=== PATIENT | male | born 1980 | race Caucasian/White ===

== ENCOUNTER 2017-06-11 02:40 | Inpatient (IN) | payer MEDICAID ==
--- NOTE | 2017-06-11 03:17 | C.PDOC ---
History Of Present Illness <Iraida Caceres - Last Filed: 06/11/17 06:43> <Kiara Tovar N - Last Filed: 06/11/17 07:32> 37 y/o male with h/o of heroine abuse presents to ER requesting detox. Pt c/o of feeling depressed when using heroine. Last use [employer]. Pt c/o of mild toothache and is requesting pain meds. denies trauma, chest pain, SOB, Suicidal/ homicidal ideations or hallucinations (Iraida Caceres) History Per: Patient History/Exam Limitations: no limitations Suicide/Self Injury Attempted (Context): None Modifying Factor(s): Other (heroine) Associated Symptoms: Depression <Iraida Caceres - Last Filed: 06/11/17 06:43> <Kiara Tovar N - Last Filed: 06/11/17 07:32> Time Seen by Provider: 06/11/17 03:08 Chief Complaint (Nursing): Psychiatric Evaluation Past Medical History - Medical History PMH: No Chronic Diseases Family History: States: Unknown Family Hx - Social History Hx Alcohol Use: No Hx Substance Use: Yes <Iraida Caceres - Last Filed: 06/11/17 06:43> Vital Signs: Last Vital Signs Temp 98 F 06/11/17 02:59 Pulse 95 H 06/11/17 02:59 Resp 20 06/11/17 02:59 BP 143/87 06/11/17 02:59 Pulse Ox 98 06/11/17 06:45 Review Of Systems Constitutional: Negative for: Fever ENT: Positive for: Mouth Pain (dental) Cardiovascular: Negative for: Chest Pain, Palpitations Respiratory: Negative for: Shortness of Breath Gastrointestinal: Negative for: Nausea, Vomiting Neurological: Negative for: Weakness, Numbness Psych: Positive for: Depression <Iraida Caceres - Last Filed: 06/11/17 06:43> Constitutional: Negative for: Chills Eyes: Negative for: Pain, Vision Change ENT: Negative for: Ear Pain, Ear Discharge Respiratory: Negative for: Cough, SOB with Excertion, Pleuritic Pain Gastrointestinal: Negative for: Constipation Genitourinary: Negative for: Dysuria, Frequency, Hematuria Musculoskeletal: Negative for: Neck Pain, Shoulder Pain, Back Pain, Hand Pain Skin: Negative for: Rash, Lesions Psych: Negative for: Anxiety <Kiara Tovar - Last Filed: 06/11/17 07:32> Physical Exam - Physical Exam Appears: Well, Non-toxic Skin: Normal Color Head: Atraumatic Eye(s): bilateral: Normal Inspection, PERRL Teeth: Caries (lower molars b/l, no fluuctuant mass) Throat: Normal, No Erythema Neck: Normal, Supple Chest: Symmetrical, No Tenderness Cardiovascular: Rhythm Regular, No Murmur Respiratory: Normal Breath Sounds, No Rhonchi Gastrointestinal/Abdominal: Normal Exam, Soft, No Tenderness Extremity: Normal ROM, No Swelling Extremity: Bilateral: Atraumatic Neurological/Psych: Oriented x3, Normal Speech, Normal Cognition Gait: Steady <Iraida Caceres - Last Filed: 06/11/17 06:43> ED Course And Treatment - Laboratory Results Result Diagrams: 06/11/17 03:36 06/11/17 03:36 O2 Sat by Pulse Oximetry: 98 Pulse Ox Interpretation: Normal Progress Note: Pt AAOx3 in NAD, labs are sent for detox. Patient is pending evaluation for detox. Pt was evaluated by crisis counselor Uma and will be admitted to psych undr Dr Hicks. Pt remained stable in ED. Pt remained stable in ED, labs reviewed and pt is medically cleared for psych admission <Iraida Caceres - Last Filed: 06/11/17 06:43> - Laboratory Results Result Diagrams: 06/11/17 03:36 06/11/17 03:36 <Kiara Tovar N - Last Filed: 06/11/17 07:32> Disposition - Disposition Disposition Time: 06:44 <Iraida Caceres - Last Filed: 06/11/17 06:43> <Kiara Tovar N - Last Filed: 06/11/17 07:32> - Disposition Disposition: HOSPITALIZED Condition: STABLE - Clinical Impression Clinical Impression: Major depressive disorder, single episode, unspecified, Opiate abuse, continuous
[2017-06-11 03:41] LABS: BASO % 0.3 % (0.0-2.0); EOS # 0.3 K/uL (0.0-0.7); EOS % 2.4 % (0.0-4.0); LYMPH # 2.7 K/uL (1.0-4.3); LYMPH % 25.7 % (20.0-40.0); MEAN CELL VOLUME 82.6 fL (80.0-94.0); MEAN CORPUSCULAR HEMOGLOBIN 28.2 pg (27.0-31.0); MEAN CORPUSCULAR HGB CONC 34.2 g/dL (33.0-37.0); MEAN PLATELET VOLUME 8.8 fL (7.2-11.7); MONO # 0.9 K/uL (0.0-0.8); MONO % 8.6 % (0.0-10.0); NEUT # 6.5 K/uL (1.8-7.0); NRBC % 0.1 % (0.0-2.0); RBC 4.97 Mil/uL (4.40-5.90); RED CELL DISTRIBUTION WIDTH 14.8 % (11.5-14.5); WHITE BLOOD COUNT 10.4 K/uL (4.8-10.8)
[2017-06-11 03:54] LABS: ALB/GLOB RATIO 0.9 (1.0-2.1); ALT/SGPT 127 U/L (21-72); AST/SGOT 85 U/L (17-59); BLOOD UREA NITROGEN 20 mg/dL (9-20); CALCIUM 8.9 mg/dl (8.6-10.4); GFR AFRICAN-AMERICAN > 60; GFR NON-AFRICAN AMERICAN > 60
[2017-06-11 05:29] LABS: URINE BILIRUBIN NEGATIVE (NEGATIVE); URINE CLARITY Clear (Clear); URINE COLOR Yellow (YELLOW); URINE GLUCOSE (UA) NORMAL (Normal); URINE LEUKOCYTE ESTERASE NEG Leu/uL (Negative); URINE PROTEIN NEGATIVE (NEGATIVE); URINE UROBILINOGEN NORMAL mg/dL (0.2-1.0)
[2017-06-11 05:34] LABS: URINE BLOOD NEGATIVE (NEGATIVE)
[2017-06-11 05:48] LABS: BARBITURATES, UR NEGATIVE (NEGATIVE); BENZODIAZEPINES, UR NEGATIVE (NEGATIVE); PHENCYCLIDINE, UR NEGATIVE (NEGATIVE)
[2017-06-11 06:06] LABS: OPIATES, UR POSITIVE (NEGATIVE)
--- NOTE | 2017-06-11 08:16 | PCM.BM ---
<Taryn Avalos - Last Filed: 06/11/17 08:15> Treatment Plan Problems - Problems identified on initial assessmt Depression Date Initiated: 06/11/17 Time Initiated: 08:15 Assessment reference: NA Status: Active Substance Abuse Date Initiated: 06/11/17 Time Initiated: 08:15 Assessment reference: NA Status: Active Treatment assets and liabiliti Patient Assests: adapts well, cooperative, ADL independent, negotiates basic needs, cognitively intact Patient Liabilities: live alone, financial problems, poor support system, substance abuse (Opiates, THC, Cocaine), medical problems (HTN) - Milieu Protocol Maintain good personal hygiene: daily Encourage regular showers, daily Remind patient to perform daily oral care, daily Assist patient to perform ADL's (Self) Conduct patient checks and document Observation sheet: Q15 minutes (Safety) Maintain personal safety: every shift Educate patient to report safety concerns to staff, every shift Monitor environment for contraband/sharps Medication safety: Monitor for expected outcome, potential side effects: every shift, Assess barriers to learning: every shift, Assess readiness for medication education: every shift <Ann Smith - Last Filed: 06/15/17 07:55> Family Contact Family involvement: Famliy/SO not involved - Goals for Treatment Patient goals for treatment: "I want to go to rehab." Discharge/Continuing Care - Education Needs Education Needs: Patient Medication, Patient Placement options, Patient Community resources - Discharge Discharge Criteria: Tolerates medication w/o severe side effects, No longer exhibiting s/s of withdrawal, Reduction of target symptoms Discharge to:: Substance Abuse Rehab - Treatment Team Participation Discussed with Family/SO: No Was Patient/Family/SO present at Treatment Team Meeting: Yes
[2017-06-12] MEDS: Emtricitabine-Tenofovir 200 mg-300 mg Tab PO SCH (17:09)
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
[2017-06-13] MEDS: Emtricitabine-Tenofovir 200 mg-300 mg Tab PO SCH (10:00)
--- NOTE | 2017-06-13 23:27 | PCM.PYCHPN ---
Psychiatric Progress Note - Psychiatric Progress Note Patient seen today, length of contact: 15 Minutes Patient Chief Complaint: I'm feeling little better Problems Identified/Issues Discussed: Patient seen, chart reviewed, case discussed with the staff. Issues related to illness and treatment were discussed with the patient and staff. Reported compliant with treatment with no adverse affects. Feeling little better. Patient still has some withdrawal symptoms. Patient needs more time for stabilization. Mood reported as okay. Affect appropriate. Aftercare discussed with the patient. At time of evaluation, patient was awake alert oriented 3, no delusions, no auditory or visual hallucinations, no suicidal ideations or homicidal ideations. Medical Problems: HIV Diagnostic Results: Reviewed DSM 5 Symptoms Update: Improving with treatment Medication Change: No Medical Record Reviewed: Yes Mental Status Examination - Cognitive Function Orientation: Person, Place, Situation, Time Memory: Intact Attention: WNL Concentration: WNL Association: WN Fund of Knowledge: [facility] Decription of patient's judgement and insights: Fair - Mood Mood: Depressed (Less than before) - Affect Affect: Other (Appropriate) - Speech Speech: Appropriate - Formal Thought Process Formal Thought Process: No Impairment Psychotic Thoughts and Behaviors: None - Suicidal Ideation Suicidal Ideation: No - Homicidal Ideation Homicidal Ideation: No Goal/Treatment Plan - Goal/Treatment Plan Need for Continued Stay: Remain at risks for inpatient hospitalization, Discharge may exacerbated symptoms, Severe functional impairment Progress Toward Problem(s) and Goals/Treatment Plan: Patient education Supportive therapy CBT for relapse prevention [place] for abstinence Continue treatment as before Patient wants to go to [facility] or [facility] after discharge from the hospital for follow-up care. Estimated Date of D/C: 06/15/17 - Smoking Cessation Smoking Cessation Initiated: No Reason for not providing: Patient doesn't smoke cigarettes
[2017-06-14] MEDS: Emtricitabine-Tenofovir 200 mg-300 mg Tab PO SCH (10:04)
--- NOTE | 2017-06-14 19:08 | PCM.PYCHPN ---
Psychiatric Progress Note - Psychiatric Progress Note Patient seen today, length of contact: 15 Minutes Patient Chief Complaint: I'm feeling much better Problems Identified/Issues Discussed: Patient seen, chart reviewed, case discussed with the staff. Issues related to illness and treatment were discussed with the patient and staff. Reported compliant with treatment with no adverse affects. Feeling much better. Mood reported as okay. Affect appropriate. Aftercare discussed with the patient. At time of evaluation, patient was awake alert oriented 3, no delusions, no auditory or visual hallucinations, no suicidal ideations or homicidal ideations. Medical Problems: HIV Diagnostic Results: Reviewed DSM 5 Symptoms Update: Improving with treatment Medication Change: No Medical Record Reviewed: Yes Mental Status Examination - Cognitive Function Orientation: Person, Place, Situation, Time Memory: Intact Attention: WNL Concentration: WNL Association: WN Fund of Knowledge: [facility] Decription of patient's judgement and insights: Fair - Mood Mood: Depressed (Much less than before) - Affect Affect: Other (Appropriate) - Speech Speech: Appropriate - Formal Thought Process Formal Thought Process: No Impairment Psychotic Thoughts and Behaviors: None - Suicidal Ideation Suicidal Ideation: No - Homicidal Ideation Homicidal Ideation: No Goal/Treatment Plan - Goal/Treatment Plan Need for Continued Stay: Remain at risks for inpatient hospitalization, Discharge may exacerbated symptoms, Severe functional impairment Progress Toward Problem(s) and Goals/Treatment Plan: Patient education Supportive therapy CBT for relapse prevention [place] for abstinence Continue treatment as before Patient wants to go to [facility] or [facility] after discharge from the hospital for follow-up care. Estimated Date of D/C: 06/15/17 - Smoking Cessation Smoking Cessation Initiated: No Reason for not providing: Patient doesn't smoke cigarettes
[2017-06-15] MEDS: Emtricitabine-Tenofovir 200 mg-300 mg Tab PO SCH (09:54)
--- NOTE | 2017-06-15 13:50 | PCM.PYCHPN ---
Psychiatric Progress Note - Psychiatric Progress Note Patient seen today, length of contact: 15 Minutes Patient Chief Complaint: I'm feeling much better. Problems Identified/Issues Discussed: Patient seen, chart reviewed, case discussed with the staff. Issues related to illness and treatment were discussed with the patient and staff. Reported compliant with treatment with no adverse affects. Feeling much better. Mood reported as good. Affect appropriate. Aftercare discussed with the patient. At time of evaluation, patient was awake alert oriented 3, no delusions, no auditory or visual hallucinations, no suicidal ideations or homicidal ideations. Medical Problems: HIV Diagnostic Results: Reviewed DSM 5 Symptoms Update: Improving with treatment Medication Change: No Medical Record Reviewed: Yes Mental Status Examination - Cognitive Function Orientation: Person, Place, Situation, Time Memory: Intact Attention: WNL Concentration: WNL Association: WN Fund of Knowledge: [facility] Decription of patient's judgement and insights: Fair - Mood Mood: Neutral - Affect Affect: Other (Appropriate) - Speech Speech: Appropriate - Formal Thought Process Formal Thought Process: No Impairment Psychotic Thoughts and Behaviors: None - Suicidal Ideation Suicidal Ideation: No - Homicidal Ideation Homicidal Ideation: No Goal/Treatment Plan - Goal/Treatment Plan Need for Continued Stay: Remain at risks for inpatient hospitalization, Discharge may exacerbated symptoms, Severe functional impairment Progress Toward Problem(s) and Goals/Treatment Plan: Patient education Supportive therapy CBT for relapse prevention [place] for abstinence Continue treatment as before Patient wants to go to [facility] after discharge from the hospital for follow-up care. Estimated Date of D/C: 06/16/17 - Smoking Cessation Smoking Cessation Initiated: No Reason for not providing: Patient doesn't smoke cigarettes
[2017-06-16 06:12] VITALS: BP 116/71; PULSE 66; RESP 16; TEMP 98.9; O2SAT 99
[2017-06-16] MEDS: Emtricitabine-Tenofovir 200 mg-300 mg Tab PO SCH (09:40)
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
== END 2017-06-16 10:22 | disposition home or self-care (01) | DRG 715 ==
LOC: C.ER 02:40 → C.9E 06:41 → C.5E 07:43
PROC: HZ2ZZZZ Detoxification Services for Substance Abuse Treatment (ICD-10-PCS; principal; 2017-06-11)
PROC: HZ52ZZZ Individual Psychotherapy for Substance Abuse Treatment, Cognitive-Behavioral (ICD-10-PCS; 2017-06-11)
PROC: HZ59ZZZ Individual Psychotherapy for Substance Abuse Treatment, Supportive (ICD-10-PCS; 2017-06-11)
PROC: HZ42ZZZ Group Counseling for Substance Abuse Treatment, Cognitive-Behavioral (ICD-10-PCS; 2017-06-11)
PROC: GZHZZZZ Group Psychotherapy (ICD-10-PCS; 2017-06-11)
PROC: GZ58ZZZ Individual Psychotherapy, Cognitive-Behavioral (ICD-10-PCS; 2017-06-11)
PROC: GZ56ZZZ Individual Psychotherapy, Supportive (ICD-10-PCS; 2017-06-11)
DX: F11.23 Opioid dependence with withdrawal (principal); B20 Human immunodeficiency virus [HIV] disease; F33.2 Major depressive disorder, recurrent severe without psychotic features; F12.20 Cannabis dependence, uncomplicated; F43.12 Post-traumatic stress disorder, chronic; K08.89 Other specified disorders of teeth and supporting structures; Z81.8 Family history of other mental and behavioral disorders; Z91.5 Personal history of self-harm

== ENCOUNTER 2017-07-21 21:35 | Emergency (ER) | payer MEDICAID ==
[2017-07-21 21:54] VITALS: BP 133/83; PULSE 70; RESP 12; TEMP 98.4; O2SAT 96
--- NOTE | 2017-07-21 22:42 | C.PDOC ---
History Of Present Illness 37 year old male, with a past medical history of HTN, who presents to the emergency department requesting heroin detox. Patient admits to have used heroin earlier today. He denies any suicidal or homicidal ideation. No physical complaints. PMD: None provided. Time Seen by Provider: 07/21/17 22:07 Chief Complaint (Nursing): Substance Abuse History Per: Patient History/Exam Limitations: no limitations Onset/Duration Of Symptoms: Hrs (today) Current Symptoms Are (Timing): Still Present Suicide/Self Injury Attempted (Context): None Associated Symptoms: denies: Suicidal Thoughts (or homicidal ideation), Suicidal Plan Involuntary Hold By: None Past Medical History Reviewed: Historical Data, Nursing Documentation, Vital Signs Vital Signs: Last Vital Signs Temp 98.4 F 07/21/17 21:51 Pulse 70 07/21/17 21:51 Resp 12 07/21/17 21:51 BP 133/83 07/21/17 21:51 Pulse Ox 96 07/21/17 22:42 - Medical History PMH: Hepatitis (C), HIV, HTN Denies: Chronic Kidney Disease Surgical History: No Surg Hx - [facility] DETOXIFICATION SERVICES FOR SUBSTANCE ABUSE TREATMENT (06/11/17) GROUP CNA CAREGIVER FOR SUBSTANCE ABUSE, COGNITIVE BEHAVIORAL (06/11/17) GROUP PSYCHOTHERAPY (06/11/17) INDIV PSYCHOTHERAPY FOR SUBSTANCE ABUSE TREATMENT, SUPPORT (06/11/17) INDIV PSYCHOTHERAPY FOR SUBSTANCE ABUSE, COGNITIV BEHAVIORAL (06/11/17) INDIVIDUAL PSYCHOTHERAPY, COGNITIVE-BEHAVIORAL (06/11/17) INDIVIDUAL PSYCHOTHERAPY, SUPPORTIVE (06/11/17) Family History: States: Unknown Family Hx - Social History Hx Tobacco Use: Yes Hx Alcohol Use: No Hx Substance Use: Yes Review Of Systems Except As Marked, All Systems Reviewed And Found Negative. Physical Exam - Physical Exam Appears: Other (drowsy) Skin: Normal Color, Warm, Dry Head: Atraumatic, Normacephalic Eye(s): bilateral: Other (2-3mm and reactive) Neck: Normal ROM Cardiovascular: Rhythm Regular, No Murmur Respiratory: Normal Breath Sounds, No Wheezing Gastrointestinal/Abdominal: Normal Exam, Soft, No Tenderness Extremity: Normal ROM (upper and lower), No Deformity, No Swelling Neurological/Psych: Other (arousable to verbal stimuli ) ED Course And Treatment O2 Sat by Pulse Oximetry: 96 (RA) Pulse Ox Interpretation: Normal Progress Note: Initial Plan: confirmed with crisis there were no detox beds available. On reevaluation is AOEX3 and medically stable for discharge. Disposition - Disposition Referrals: [facility] [Outside] Disposition: HOME/ ROUTINE Disposition Time: 22:40 Condition: STABLE Forms: [facility] (Burmese) - Clinical Impression Clinical Impression: Heroin dependence - Scribe Statement The provider has reviewed the documentation as recorded by the Jose Ramos Provider Attestation: All medical record entries made by the Jose were at my direction and personally dictated by me. I have reviewed the chart and agree that the record accurately reflects my personal performance of the history, physical exam, medical decision making, and the department course for this patient. I have also personally directed, reviewed, and agree with the discharge instructions and disposition.
== END 2017-07-21 22:45 | disposition home or self-care (01) ==
LOC: C.ER 21:35
DX: F11.20 Opioid dependence, uncomplicated (principal); I10 Essential (primary) hypertension; Z72.0 Tobacco use